=== PATIENT | male | born 1965 | race Caucasian/White ===

== ENCOUNTER 2023-02-01 13:30 | Inpatient (IN) | payer SELFPAY ==
[2023-02-01] VITALS (7 sets, daily range): BP systolic 80–118; BP diastolic 56–75
[~2023-02-01] VITALS: Ht 162.6 cm; Wt 87.0 kg
[2023-02-01 14:33] LABS: Source, Urine Clean Catch
[2023-02-01 14:35] LABS: Albumin, Blood 3.5 g/dL (3.4-5.0); Albumin/Globulin Ratio 1.1 (0.8-1.8); Bilirubin, Total 1.8 mg/dL (0.1-1.0); Bun/Creatinine Ratio 11.6 (12.0-20.0); Calcium, Blood 8.8 mg/dL (8.5-10.1); Creatinine, Blood 1.46 mg/dL (0.60-1.20); Globulin, Blood 3.3 g/dL (2.2-4.0); Magnesium, Blood 1.9 mg/dL (1.6-2.4); Potassium, Blood 3.3 mmol/L (3.5-5.5); Total Protein, Blood 6.8 g/dL (6.4-8.2)
[2023-02-01 14:49] LABS: Appearance, Urine Cloudy (Clear); Blood, Urine 2+ (Neg); Glucose Qualitative, Urine Neg (Neg); Ketones, Urine 1+ (Neg); Leukocyte Esterase, Urine 3+ (Neg); Nitrite, Urine Pos (Neg); Protein, Urine 3+ (Neg); Urobilinogen, Urine 3+ (Normal)
[2023-02-01 15:02] LABS: Hematocrit 42.6 % (37.0-53.0); Hemoglobin 15.4 g/dL (13.5-17.5); Mean Corpuscular HGB 29.9 pg (26.0-34.0); Mean Corpuscular HGB Conc 36.2 g/dL (31.5-36.5); Mean Corpuscular Volume 83 fL (80-100); RDW Coefficient Variation 12.3 % (11.7-14.2); RDW Standard Deviation 37.4 fL (35.1-46.3); Red Blood Cell Count 5.15 M/mm3 (4.30-5.90); White Blood Cell Count 10.11 K/mm3 (4.00-11.30)
[2023-02-01 15:04] LABS: Bilirubin, Urine 3+ (Neg)
[2023-02-01 15:05] LABS: Color, Urine Orange (P-Yellow); Granular Casts 0-2 /lpf (0)
[2023-02-01 15:06] LABS: White Blood Cells, Urine TNTC /hpf (0-5)
[2023-02-01 15:07] LABS: Bacteria Many /hpf; Squamous Epithelial Cells Rare /hpf (Few); Transitional Epithelial Cells Rare /hpf (0-Rare)
[2023-02-01 15:10] LABS: Mucus Light (0-Heavy)
[2023-02-01 15:12] LABS: Influenza A, PCR NEGATIVE (NEGATIVE); Influenza B, PCR NEGATIVE (NEGATIVE); Resp Syncytial Virus, PCR NEGATIVE (NEGATIVE); SARS-Cov-2 (COVID-19) PCR, MMC NEGATIVE (NEGATIVE)
[2023-02-01 15:55] LABS: Platelet Count 213 K/mm3 (150-400)
[2023-02-01 16:01] LABS: BAND PERCENT MAN 43 % (0-8); BASOPHILS PERCENT MAN 0 % (0-2); EOSINOPHILS PERCENT MAN 0 % (0-6); LYMPHOCYTES ABSOLUTE MAN 1.11 K/mm3 (0.84-5.20); LYMPHOCYTES PERCENT MAN 11 % (21-46); METAMYELOCYTE PERCENT MAN 4 % (0-0); MONOCYTES PERCENT MAN 1 % (4-13); MYELOCYTE PERCENT MAN 1 % (0-0); NEUTROPHILS ABSOLUTE MAN 8.39 K/mm3 (1.96-9.15); SEG NEUTROPHILS PERCENT MAN 40 % (41-73); TOTAL CELLS COUNTED 100
[2023-02-01 16:23] LABS: International Normalized Ratio 1.12; Prothrombin Time Results 11.7 Sec (9.7-11.5)
[2023-02-01 17:30] LABS: U Amphetamine Screen Not Detected; U Barbituate Screen Not Detected; U Benzodiazapine Screen Not Detected; U Buprenorphine Screen Not Detected; U Cannabinoids Screen Not Detected; U Cocaine Screen Not Detected; U Methadone Screen Not Detected; U Methamphetamine Screen Not Detected; U Opiates Screen Not Detected; U Oxycodone Screen Not Detected; U Phencyclidine Screen Not Detected; U Propoxyphene Screen Not Detected
--- NOTE | 2023-02-01 19:23 | NUR ---
The pt arrived to PCU 6 at approx 1800. Alert, oriented and affirming that he feels much better after receiving IV fluids. Able to stand and transfer from the stretcher to the bed. Vital signs stable. 2 sons at the bedside, who only stayed a short time and then left to go take care of the pt's work truck. Pt was able to eat and drink while sitting on the side of the bed. Pleasantly conversant to staff. Bedside report was given to REGINALDO Jeffries.
[2023-02-02] VITALS (8 sets, daily range): BP systolic 97–147; BP diastolic 69–84
[2023-02-02 03:38] LABS: BASOPHILS ABSOLUTE AUTO 0.06 K/mm3 (0.00-0.23); BASOPHILS PERCENT AUTO 0 % (0-2); EOSINOPHILS ABSOLUTE AUTO 0.04 K/mm3 (0.00-0.68); EOSINOPHILS PERCENT AUTO 0 % (0-6); Hematocrit 36.8 % (37.0-53.0); Hemoglobin 12.7 g/dL (13.5-17.5); IMMATURE GRAN ABSOLUTE AUTO 0.13 K/mm3 (0.00-0.10); IMMATURE GRAN PERCENT AUTO 1 % (0-1); LYMPHOCYTES ABSOLUTE AUTO 1.44 K/mm3 (0.84-5.20); LYMPHOCYTES PERCENT AUTO 8 % (21-46); MONOCYTES PERCENT AUTO 5 % (4-13); Mean Corpuscular HGB 29.6 pg (26.0-34.0); Mean Corpuscular HGB Conc 34.5 g/dL (31.5-36.5); Mean Corpuscular Volume 86 fL (80-100); Mean Platelet Volume 9.3 fL (9.1-12.4); NEUTROPHILS ABSOLUTE AUTO 16.35 K/mm3 (1.96-9.15); NEUTROPHILS PERCENT AUTO 86 % (41-73); Platelet Count 169 K/mm3 (150-400); RDW Coefficient Variation 12.9 % (11.7-14.2); RDW Standard Deviation 39.8 fL (35.1-46.3); Red Blood Cell Count 4.29 M/mm3 (4.30-5.90); White Blood Cell Count 19.02 K/mm3 (4.00-11.30)
[2023-02-02 04:06] LABS: Albumin, Blood 2.7 g/dL (3.4-5.0); Albumin/Globulin Ratio 0.9 (0.8-1.8); Bilirubin, Total 0.8 mg/dL (0.1-1.0); Bun/Creatinine Ratio 11.5 (12.0-20.0); Calcium, Blood 7.7 mg/dL (8.5-10.1); Creatinine, Blood 1.39 mg/dL (0.60-1.20); Potassium, Blood 4.1 mmol/L (3.5-5.5); Total Protein, Blood 5.7 g/dL (6.4-8.2)
--- NOTE | 2023-02-02 04:32 | NUR ---
SHIFT SUMMARY PT AXO4, PLEASANT. IN SR/ST. MILD HYPOTENSION NOTED, RESOLVING POST BOLUS AND MAINTENANCE FLUID INFUSIIONS. PT HAS NOT VOIDED MUCH IN COMPARISON TO FLUID INTAKE, URINE IS ORANGE/TEA COLOR AND VERY CONCENTRATED. DESPITE THIS, PT AFEBRILE AND STATES FEELING "MUCH BETTER" AFTER FLUIDS. BP ARE STABILIZING WITH CONSISTENT MAP'S >70 NOW. PT IS INDEPENDENT IN ROOM. USING URINAL FOR ACCURATE I&O'S. USES CALL LIGHT APPROPRIATELY.
--- NOTE | 2023-02-02 07:42 | NUR ---
Bedside report from REGINALDO Jeffries. The pt awakens easily, and is oriented and cooperative, pleasantly conversant. vital signs taken, noted temperature 100.0. IV fluids Lactated Ringer's infusing at 150 cc/hour. Per report, pt took AZO at home and his urine is orange.
--- NOTE | 2023-02-02 11:26 | NUR ---
The patient is sleeping.
--- NOTE | 2023-02-02 17:28 | NUR ---
Zafar appears to be sleeping. Respirations even, unlabored and heart rate 79 bpm, sinus rhythm. Translation phone placed at the bedside earlier this afternoon to assist with patient education.
--- NOTE | 2023-02-02 23:46 | NUR ---
ASSUMED PT CARE FROM GABY HAIR ON . A&OX4. PLEASANT AND COOPERATIVE. HR SR IN 70'S. DENIES CHEST PAIN/PRESSURE. BP STABLE, SEE RECORDED VITAL SIGNS. O2 SATS. 92% ON RA. AFEBRILE AT THIS TIME. WILL MONITOR. PT ABLE TO DEMONSTRATE HOW TO TAKE BLOOD SUGAR WITH HOME MONITOR. FAMILY ATTENTIVE AT BEDSIDE. INDEPENDENT IN ROOM. CALL LIGHT IN REACH.
[2023-02-03 01:13] VITALS: BP 135/83
[2023-02-03 04:15] VITALS: BP 146/80
[2023-02-03 04:18] LABS: BASOPHILS ABSOLUTE AUTO 0.02 K/mm3 (0.00-0.23); BASOPHILS PERCENT AUTO 0 % (0-2); EOSINOPHILS ABSOLUTE AUTO 0.07 K/mm3 (0.00-0.68); EOSINOPHILS PERCENT AUTO 1 % (0-6); Hematocrit 36.3 % (37.0-53.0); Hemoglobin 12.6 g/dL (13.5-17.5); IMMATURE GRAN ABSOLUTE AUTO 0.07 K/mm3 (0.00-0.10); IMMATURE GRAN PERCENT AUTO 1 % (0-1); LYMPHOCYTES ABSOLUTE AUTO 1.36 K/mm3 (0.84-5.20); LYMPHOCYTES PERCENT AUTO 12 % (21-46); MONOCYTES PERCENT AUTO 6 % (4-13); Mean Corpuscular HGB 29.6 pg (26.0-34.0); Mean Corpuscular HGB Conc 34.7 g/dL (31.5-36.5); Mean Corpuscular Volume 85 fL (80-100); Mean Platelet Volume 9.5 fL (9.1-12.4); NEUTROPHILS ABSOLUTE AUTO 9.42 K/mm3 (1.96-9.15); NEUTROPHILS PERCENT AUTO 81 % (41-73); Platelet Count 155 K/mm3 (150-400); RDW Coefficient Variation 12.8 % (11.7-14.2); RDW Standard Deviation 39.5 fL (35.1-46.3); Red Blood Cell Count 4.26 M/mm3 (4.30-5.90); White Blood Cell Count 11.64 K/mm3 (4.00-11.30)
[2023-02-03 04:32] LABS: Bun/Creatinine Ratio 12.9 (12.0-20.0); Creatinine, Blood 1.01 mg/dL (0.60-1.20); Potassium, Blood 3.6 mmol/L (3.5-5.5)
--- NOTE | 2023-02-03 06:27 | NUR ---
SHIFT SUMMARY: NOT ACUTE CHANGES NOTED DURING THIS SHIFT. PT SLEPT THROUGHOUT SHIFT. LOW GRADE FEVER, SEE RECORDED VITAL SIGNS. IRENE WHEN FEVER INCREASES, MEDICATED FOR IRENE, SEE EMAR. FAMILY ATTENTIVE AT BEDSIDE. CALL LIGHT IN REACH.
[2023-02-03 08:23] VITALS: BP 158/93
[2023-02-03] MEDS ORDERED: LEVO750 PO (11:10)
[2023-02-03] MEDS ORDERED: METF500 PO (11:10)
--- NOTE | 2023-02-03 12:26 | NUR ---
AFTER D/C LAB CALLED WITH BLOOD CULTURE RESULT THAT GRAM - BACILLI IN ONLY ONE OF 2 CULTURES. IV WAS REMOVED AND PRESSURE DRESSED. PT IS EDUCATED WITH THE AID OF THE FOOD SAFETY SCIENTIST PHONE. PT EXPRESSED UNDERSTANDING OF DC TEACHING AND DENIES FURTHER NEEDS OR QUESTIONS. PRESCRIPOTIONS WERE CALLED INTO THE [facility] PER PT REQUEST
== END 2023-02-03 12:06 | disposition home or self-care (01) | DRG 872 ==
LOC: ER 13:30 → PCU 18:10
PROVIDERS: Hospitalist; Nurse Practitioner Acute Care; Student in an Organized Health Care Education/Training Program; ADMIT Internal Medicine
DX: A41.51 Sepsis due to Escherichia coli [E. coli] (principal); N17.9 Acute kidney failure, unspecified; N12 Tubulo-interstitial nephritis, not specified as acute or chronic; R65.20 Severe sepsis without septic shock; Z20.822 Contact with and (suspected) exposure to COVID-19; E11.65 Type 2 diabetes mellitus with hyperglycemia; E87.6 Hypokalemia; E86.1 Hypovolemia; R74.01 Elevation of levels of liver transaminase levels; Z98.890 Other specified postprocedural states
CPT/HCPCS: 0241U; 36415; 71045; 80048; 80053; 81001; 82550; 82947; 83036; 83605; 83735; 85025; 85610; 87040; 87077; 87086; 87186; 93005; 93010; 96365; 96366; 96367; 96375; 99285-25; A9270; J0696; J1644; J1885; J2543; J3480; J7030; J7120